=== PATIENT | female | born 1980 | race Caucasian/White ===

== ENCOUNTER 2018-07-22 00:52 | Emergency (ER) | payer OTHER ==
[~2018-07-22] VITALS: Ht 170.2 cm; Wt 99.8 kg
[2018-07-22] MEDS ORDERED: SODIUM CHLORIDE 0.9% 1000ML 1,000 ML ONE (01:15)
[2018-07-22] MEDS ORDERED: PROMETHAZINE HCL (IM) 25 MG/ML VIAL IM ONE (01:15)
[2018-07-22] MEDS ORDERED: KETOROLAC TROMETHAMINE 30 MG/ML VIAL IV STA (01:37)
--- NOTE | 2018-07-22 02:51 | Diagnostic Imaging Report ---
ADDENDUM #1 Dose modulation, iterative reconstruction, and/or weight based adjustment of the mA/kV was utilized to reduce the radiation dose to as low as reasonably achievable. Signed by: Dr. Ruma Wolff M.D. on 08/07/2018 2:20 AM ORIGINAL REPORT EXAM: CT ABDOMEN AND PELVIS without IV CONTRAST INDICATION: Right lower abdominal pain, hematuria COMPARISON: None TECHNIQUE: The abdomen and pelvis were scanned using a multidetector helical scanner. Coronal and sagittal reformations were obtained. Renal stone protocol performed. IV Contrast: None Oral Contrast: None CTDIvol has been reviewed. It is below the limits set by the Radiation Protocol Committee (RPC). FINDINGS: LOWER THORAX: No consolidations LIVER: No masses BILIARY: The gallbladder is unremarkable. No ductal dilation. SPLEEN: No masses PANCREAS: No masses ADRENALS: No nodules RIGHT KIDNEY: Mild hydronephrosis. No nephroureterolithiasis. LEFT KIDNEY: No nephroureterolithiasis or hydronephrosis. GI TRACT: No distention, wall thickening or evidence of obstruction. Normal appendix. VESSELS: Unremarkable PERITONEUM/RETROPERITONEUM: No free air or fluid LYMPH NODES: No lymphadenopathy REPRODUCTIVE ORGANS: Lobulated uterus consistent with fibroids. BLADDER: Unremarkable SOFT TISSUES: Unremarkable BONES: No suspicious bone lesions. IMPRESSION: There is mild hydronephrosis of the right kidney. No nephroureterolithiasis. Findings could be secondary to recently passed stone or infection. Signed by: Dr. Ruma Wolff M.D. on 07/22/2018 2:48 AM
[2018-07-22 03:44] VITALS: BP 125/84
== END 2018-07-22 03:56 | disposition home or self-care (01) ==
LOC: FSED 00:52
DX: R10.11 Right upper quadrant pain (principal); R10.12 Left upper quadrant pain; R11.2 Nausea with vomiting, unspecified; N20.1 Calculus of ureter
CPT/HCPCS: 74176; 80053; 81003; 81025; 85025; 99284; J1885; J2550; J7030